=== PATIENT | female | born 1990 | race American Indian/Alaskan Native ===

== ENCOUNTER 2017-05-29 21:19 | Outpatient (CLI) | payer SELFPAY ==
[2017-05-29] MEDS ORDERED: LACTATED RINGERS 1,000 ML IV ONE (21:21)
[2017-05-29 21:38] VITALS: BP 121/60
[2017-05-29 21:45] LABS: Bacteria,Urine 2+ /HPF (Negative); Bilirubin,Urine NEG (Negative); Blood,Urine NEG (Negative); Color,Urine Yellow (Yellow); Nitrite,Urine NEG (Negative); Protein,Urine <15 mg/dL mg/dL (Negative); Urobilinogen,Urine < 2.0 mg/dL (<2.0)
== END 2017-05-29 22:12 | disposition home or self-care (01) ==
LOC: TRG 21:19
PROVIDERS: ATTEND Obstetrics & Gynecology
DX: O47.03 False labor before 37 completed weeks of gestation, third trimester (principal); Z3A.28 28 weeks gestation of pregnancy
CPT/HCPCS: 59025; 81001

== ENCOUNTER 2017-11-11 21:01 | Emergency (ER) | payer OTHER ==
[2017-11-11 21:46] LABS: Basophils # (Auto) 0.1 K/mm3 (0.0-0.1); Basophils % (Auto) 0.7 % (0.0-1.8); Eosinophils # (Auto) 0.2 K/mm3 (0.0-0.4); Eosinophils % (Auto) 1.6 % (0.0-4.3); Hematocrit 33.9 % (30.3-42.9); Hemoglobin 11.2 gm/dl (10.1-14.3); Lymphocytes % (Auto) 26.2 % (13.4-35.0); Mean Corpuscular HGB Conc 33 % (30-34); Mean Corpuscular Volume 77 fl (79-97); Monocytes # (Auto) 0.7 K/mm3 (0.0-0.8); Monocytes % (Auto) 5.9 % (0.0-7.3); Platelet Count 255 K/mm3 (140-440); Red Blood Count 4.42 M/mm3 (3.65-5.03); Red Cell Distribution Width 14.5 % (13.2-15.2)
[2017-11-11 22:10] LABS: Mean Corpuscular Hemoglobin 25 pg (28-32)
[2017-11-11 22:23] LABS: Alanine Aminotransferase 17 units/L (7-56); Albumin 3.9 g/dL (3.9-5); BUN/Creatinine Ratio 11; Blood Urea Nitrogen 8 mg/dL (7-17); Calcium 8.8 mg/dL (8.4-10.2); Hemolysis Index 15
[2017-11-11 22:54] LABS: Bilirubin,Urine NEG (Negative); Blood,Urine NEG (Negative); Color,Urine Yellow (Yellow); Protein,Urine <15 mg/dL mg/dL (Negative); Urobilinogen,Urine < 2.0 mg/dL (<2.0)
[2017-11-11 23:03] LABS: HCG Qualitative,Urine Negative (Negative)
--- NOTE | 2017-11-12 00:23 | Emergency Department Report ---
ED Back Pain/Injury HPI - General Chief Complaint: Abdominal Pain Stated Complaint: RT FLANK PAIN Time Seen by Provider: 11/12/17 00:10 Source: patient Limitations: No Limitations - History of Present Illness Initial Comments: Ms. Lau is 27 yo female with right upper back pain and right flank pain for 2 weeks. Worse with movement and certain positions. Has used Ibuprofen with mild relief. No chest pain. No dyspnea. NO change with inspiration. She does lift her children at home. She works at a desk job. Recently started depoprovera injections. Complaint: back pain -: Gradual, week(s) (2) Similar Symptoms Previously: No Radiation: flank (right flank) Severity: moderate Quality: sharp Consistency: intermittent Worsens With: movement Associated Symptoms: denies other symptoms. denies: weakness, chest pain, numbness, difficulty walking, cough, fever/chills, constipation, loss of appetite, nausea/vomiting, shortness of breath - Related Data Home Medications Medication Instructions Recorded Confirmed Last Taken Pnv No.103/Folic/Om3s/Fish Oil 1 each PO QDAY 05/29/17 05/29/17 05/28/17 [ Gummies] Previous Rx's Medication Instructions Recorded Last Taken Type Cyclobenzaprine [Flexeril] 10 mg PO TID PRN #20 tablet 11/12/17 Unknown Rx Allergies Allergy/AdvReac Type Severity Reaction Status Date / Time No Known Allergies Allergy Verified 11/11/17 21:23 ED Review of Systems ROS: Stated complaint: RT FLANK PAIN Other details as noted in HPI Comment: All other systems reviewed and negative Constitutional: denies: fever, malaise Respiratory: denies: cough, shortness of breath Cardiovascular: denies: chest pain ED Past Medical Hx - Past Medical History Previous Medical History?: No Hx Hypertension: No Hx Diabetes: No Hx Deep Vein Thrombosis: No Hx Renal Disease: No Hx Sickle Cell Disease: No (trait) Hx Seizures: No Hx Asthma: No Hx HIV: No - Surgical History Additional Surgical History: c- section x 2 - Social History Smoking Status: Never Smoker Substance Use Type: Marijuana - Medications Home Medications: Home Medications Medication Instructions Recorded Confirmed Last Taken Type Pnv No.103/Folic/Om3s/Fish Oil 1 each PO QDAY 05/29/17 05/29/17 05/28/17 History [ Gummies] Cyclobenzaprine [Flexeril] 10 mg PO TID PRN #20 tablet 11/12/17 Unknown Rx ED Physical Exam - General Limitations: No Limitations General appearance: alert, in no apparent distress - Head Head exam: Present: atraumatic, normocephalic - Eye Eye exam: Present: normal appearance - ENT ENT exam: Present: mucous membranes moist - Neck Neck exam: Present: normal inspection. Absent: tenderness, meningismus - Respiratory Respiratory exam: Present: normal lung sounds bilaterally. Absent: respiratory distress, wheezes, rales, rhonchi - Cardiovascular Cardiovascular Exam: Present: regular rate, normal rhythm, normal heart sounds. Absent: systolic murmur, diastolic murmur, rubs, gallop - GI/Abdominal GI/Abdominal exam: Present: soft, normal bowel sounds. Absent: distended, tenderness, guarding - Extremities Exam Extremities exam: Present: normal inspection - Back Exam Back exam: Present: tenderness (exquisite tenderness at right rhomboid region) - Neurological Exam Neurological exam: Present: alert, oriented X3 - Psychiatric Psychiatric exam: Present: normal affect, normal mood - Skin Skin exam: Present: warm, dry, intact, normal color. Absent: rash ED Course Vital Signs 11/11/17 21:24 Temperature 98.9 F Pulse Rate 93 H Respiratory 18 Rate Blood Pressure 131/84 O2 Sat by Pulse 96 Oximetry ED Medical Decision Making - Lab Data Result diagrams: 11/11/17 21:33 11/11/17 21:33 Laboratory Results - last 24 hr 11/11/17 11/11/17 11/11/17 21:33 21:33 Unknown WBC 11.5 H RBC 4.42 Hgb 11.2 Hct 33.9 MCV 77 L MCH 25 L MCHC 33 RDW 14.5 Plt Count 255 Lymph % (Auto) 26.2 [place] % (Auto) 5.9 Eos % (Auto) 1.6 Baso % (Auto) 0.7 Lymph # 3.0 [place] # 0.7 Eos # 0.2 Baso # 0.1 Seg Neutrophils % 65.6 Seg Neutrophils # 7.5 Sodium 138 Potassium 4.3 Chloride 101.7 Carbon Dioxide 24 Anion Gap 17 BUN 8 Creatinine 0.7 Estimated GFR > 60 BUN/Creatinine Ratio 11 Glucose 141 H Calcium 8.8 Total Bilirubin 0.20 AST 15 ALT 17 Alkaline Phosphatase 62 Total Protein 7.5 Albumin 3.9 Albumin/Globulin Ratio 1.1 Urine Color Yellow Urine Turbidity Clear Urine pH 5.0 Ur Specific [place] 1.012 Urine Protein <15 mg/dl Urine Glucose (UA) Neg Urine Ketones Neg Urine Blood Neg Urine Nitrite Neg Urine Bilirubin Neg Urine Urobilinogen < 2.0 Ur Leukocyte Esterase Sm Urine WBC (Auto) 4.0 Urine RBC (Auto) 1.0 U Epithel Cells (Auto) 3.0 Urine HCG, Qual Negative Laboratory Results - last 24 hr 11/11/17 11/11/17 11/11/17 21:33 21:33 Unknown WBC 11.5 H RBC 4.42 Hgb 11.2 Hct 33.9 MCV 77 L MCH 25 L MCHC 33 RDW 14.5 Plt Count 255 Lymph % (Auto) 26.2 [place] % (Auto) 5.9 Eos % (Auto) 1.6 Baso % (Auto) 0.7 Lymph # 3.0 [place] # 0.7 Eos # 0.2 Baso # 0.1 Seg Neutrophils % 65.6 Seg Neutrophils # 7.5 Sodium 138 Potassium 4.3 Chloride 101.7 Carbon Dioxide 24 Anion Gap 17 BUN 8 Creatinine 0.7 Estimated GFR > 60 BUN/Creatinine Ratio 11 Glucose 141 H Calcium 8.8 Total Bilirubin 0.20 AST 15 ALT 17 Alkaline Phosphatase 62 Total Protein 7.5 Albumin 3.9 Albumin/Globulin Ratio 1.1 Urine Color Yellow Urine Turbidity Clear Urine pH 5.0 Ur Specific [place] 1.012 Urine Protein <15 mg/dl Urine Glucose (UA) Neg Urine Ketones Neg Urine Blood Neg Urine Nitrite Neg Urine Bilirubin Neg Urine Urobilinogen < 2.0 Ur Leukocyte Esterase Sm Urine WBC (Auto) 4.0 Urine RBC (Auto) 1.0 U Epithel Cells (Auto) 3.0 Urine HCG, Qual Negative Vital Signs - 24 hr 11/11/17 21:24 Temperature 98.9 F Pulse Rate 93 H Respiratory 18 Rate Blood Pressure 131/84 O2 Sat by Pulse 96 Oximetry - Medical Decision Making Right upper back pain radiating to right flank. No indication of PTX or PE. I suspect musculoskeletal pain. Do not suspect biliary colic or PNA. Rx: flexeril I also prescribed metronidazole for exposure to trichomonas via boyfriend. Critical care attestation.: If time is entered above; I have spent that time in minutes in the direct care of this critically ill patient, excluding procedure time. ED Disposition Clinical Impression: Back pain, acute, Trichomonas exposure Disposition: - TO HOME OR SELFCARE Is pt being admited?: No Does the pt Need Aspirin: No Condition: Stable Instructions: Back Pain (ED), Trichomoniasis (ED) Prescriptions: Cyclobenzaprine [Flexeril] 10 mg PO TID PRN #20 tablet PRN Reason: Muscle Spasm Referrals: JEMAL JENKINS MD [Primary Care Provider] - 3-5 Days Time of Disposition: 00:26
[2017-11-12 01:05] VITALS: BP 131/79
== END 2017-11-12 01:05 | disposition home or self-care (01) ==
LOC: ED 21:01
DX: M54.6 Pain in thoracic spine (principal); F12.90 Cannabis use, unspecified, uncomplicated
CPT/HCPCS: 36415; 80053; 81001; 81025; 85025; 99283

== ENCOUNTER 2018-05-08 08:22 | Outpatient (CLI) | payer OTHER ==
--- NOTE | 2018-05-08 14:35 | Magnetic Resonance Report ---
MR LOWER EXTREMITY JOINT LEFT WITHOUT CONTRAST HISTORY: Pain in left knee. TECHNIQUE: Multisequence, multiplanar MRI without IV contrast. COMPARISON: Left knee films dated 04/09/18. FINDINGS: A moderate joint effusion is identified extending to the suprapatellar bursa. A vertical tear is suspected in the posterior-lateral body of the medial meniscus which is best demonstrated on coronal proton fat sat image 10 and 11. This extends to the femoral and tibial articular surfaces. The lateral meniscus is intact. The fibers of the ACL are poorly identified on this exam. At least a partial tear of the ACL could be considered. The PCL, MCL, LCL complex and extensor complexes are intact. The bone marrow signal is within normal limits. Intra-articular cartilage is within normal limits. No osteochondral defect is identified. IMPRESSION: Medial meniscal tear as described. Questionable ACL injury. A partial tear could be considered. Joint effusion.
== END 2018-05-08 08:23 | disposition home or self-care (01) ==
LOC: MRI 08:22
PROVIDERS: ATTEND Orthopaedic Surgery
DX: S83.242A Other tear of medial meniscus, current injury, left knee, initial encounter (principal); M25.462 Effusion, left knee; X58.XXXA Exposure to other specified factors, initial encounter; Y93.89 Activity, other specified; Y92.89 Other specified places as the place of occurrence of the external cause; Y99.8 Other external cause status
CPT/HCPCS: 73721